=== PATIENT | female | born 1950 | race Caucasian/White ===

== ENCOUNTER 2018-01-07 12:52 | Observation (INO) | payer MEDICARE, MEDICAID ==
[2018-01-07 13:15] LABS: #Basophils 0.1 thou/uL (0.0-0.2); #Eosinphils 0.3 thou/uL (0.0-0.7); #Lymphocytes 3.3 thou/uL (1.20-3.40); #Monocytes 1.2 thou/uL (0.11-0.59); #Neutrophils 6.4 thou/uL (1.40-6.50); %Basophils 0.5 % (0.0-1.0); %Eosinophils 2.4 % (0.0-10.0); %Monocytes 10.7 % (0.0-10.0); %Neutrophils 57.4 % (42.0-75.0); Hemoglobin 13.3 g/dL (12.0-16.0); Mean Corpuscular HGB CONC 32.2 g/dL (32.0-36.0); Mean Corpuscular Hemoglobin 29.8 pg (27.0-31.0); Mean Corpuscular Volume 92.5 fl (81.0-99.0); Mean Platelet Volume 6.7 fL (7.4-10.4); Platelet Count 445 thou/uL (130-400); RBC Distribution Width 12.1 % (11.5-14.5); Red Blood Cell (RBC) Count 4.46 mill/uL (4.20-5.40); White Blood Cell (WBC) Count 11.2 thou/uL (4.8-10.8)
[2018-01-07] MEDS ORDERED: Nitroglycerin 0.4 MG TAB (25 Tab Bottle) ONE (13:36)
[2018-01-07] MEDS ORDERED: Nitroglycerin 2% Ointment 1 INCH/1 GM Packet ONE (13:36)
[2018-01-07 13:41] LABS: ALT (SGPT) 16 U/L (8-55); AST (SGOT) 18 U/L (5-34); Albumin 3.7 g/dL (3.4-4.8); Alkaline Phosphatase 109 U/L (40-150); Anion Gap 13 mmol/L (10-20); BUN (Urea Nitrogen) 17 mg/dL (9.8-20.1); Bilirubin, Total 0.4 mg/dL (0.2-1.2); Calc. Creatinine Clearance 0 mL/min (70-130); Calcium 9.4 mg/dL (7.8-10.44); Carbon Dioxide 26 mmol/L (23-31); Chloride 105 mmol/L (98-107); Estimated GFR-MDRD 79; Globulin 3.9 g/dL (2.4-3.5); Glucose 92 mg/dL (80-115); Potassium 3.9 mmol/L (3.5-5.1); Protein, Total 7.6 g/dL (6.0-8.3); Sodium 140 mmol/L (136-145)
[2018-01-07 13:45] LABS: CKMB 1.4 ng/mL (0-6.6); Troponin I 0.019 ng/mL (< 0.028)
[2018-01-07 13:49] LABS: CK (CPK) 69 U/L (29-168); Lipase 10 U/L (8-78)
--- NOTE | 2018-01-07 14:23 | RAD ---
PORTABLE CHEST: History: Chest pain, onset this morning. FINDINGS: Heart size is within normal limits. There are atherosclerotic changes of the aorta. Lungs are clear o f any infiltrates. There is some chronic left apical pleural changes noted. IMPRESSION: No active intrathoracic disease. POS: [facility]
[2018-01-07] MEDS ORDERED: Acetaminophen 650 MG Suppository PR PRN (15:41)
[2018-01-07] MEDS ORDERED: Acetaminophen 325 MG TAB PO PRN (15:41)
[2018-01-07] MEDS ORDERED: Nitroglycerin 0.4 MG TAB (25 Tab Bottle) PO PRN (15:41)
[2018-01-07] MEDS ORDERED: Bisacodyl 5 MG TAB PO PRN (15:41)
[2018-01-07] MEDS ORDERED: Morphine 5 MG/ML SYRINGE SLOW IVP PRN (16:12)
[2018-01-07 16:41] VITALS: BMI 19.9
--- NOTE | 2018-01-07 16:53 | HP ---
PRIMARY CARE PROVIDER: None. CHIEF COMPLAINT: Chest pain. HISTORY OF PRESENT ILLNESS: Ms. Rodriguez is a pleasant 67-year-old lady who was seen at [facility] on 01/07/2018. She reports that she has no known medical problems. She has no t seen a physician in several years. A couple of months ago, she had left-sided chest discomfort jody t resolved spontaneously. Today morning, she developed left-sided chest discomfort. She reports jody t it starts in the back and radiates to the front, sharp, feels like a pinched nerve, 7/[address], not accompanied by nausea, vomiting, lightheadedness, diaphoresis or shortness of breath. She de nies any recent long distance travel. She cannot recall any aggravating or relieving factors for the pain. REVIEW OF SYSTEMS: The following complete review of systems was negative, unless otherwise mentioned in the HPI or below: Constitutional: Weight loss or gain, ability to conduct usual activities. Sk in: Rash, itching. Eyes: Double vision, pain. ENT/Mouth: Nose bleeding, neck stiffness, pain, te nderness. Cardiovascular: Palpitations, dyspnea on exertion, orthopnea. Respiratory: Shortness of breath, wheezing, cough, hemoptysis, fever or night sweats. Gastrointestinal: Poor appetite, abdom inal pain, heartburn, nausea, vomiting, constipation, or diarrhea. Genitourinary: Urgency, frequenc y, dysuria, nocturia. Musculoskeletal: Pain, swelling. Neurologic/Psychiatric: Anxiety, depressio n. Allergy/Immunologic: Skin rash, bleeding tendency. PAST MEDICAL HISTORY: None. PAST SURGICAL HISTORY: None. SOCIAL HISTORY: The patient denies tobacco use, alcohol use or recreational drug use. FAMILY HISTORY: Significant for myocardial infarction in her mother when she was 60. ALLERGIES: No known drug allergies. CURRENT MEDICATIONS: None. CODE STATUS: I discussed her code status. She is FULL CODE. PHYSICAL EXAMINATION: GENERAL: Ms. Rodriguez is awake and alert, not in acute distress. VITAL SIGNS: Blood pressure is 131/72, pulse is 76, she is breathing at rate of 18 and saturating 98 % on room air. She is afebrile. When she initially presented to the emergency room, she had a blood pressure of 173/85. EYES: No scleral icterus. No conjunctival pallor. ENT: Moist mucosal membranes, no oropharyngeal erythema or exudates. NECK: Supple, nontender, normal range of movement. Trachea is midline. RESPIRATORY: Accessory muscles of breathing are not active. Chest wall movements are symmetric bila terally. LUNGS: Clear to auscultation without wheeze, rhonchi or crepitations. CARDIOVASCULAR: S1 and S2 are heard, regular. Peripheral pulses palpable. No carotid bruit, no per icardial rub. ABDOMEN: Soft, nontender, bowel sounds heard, no hepatomegaly, no splenomegaly. NEUROLOGIC: Cranial nerves II-XII are intact. Deep tendon reflexes 2+. MUSCULOSKELETAL: Power is 5/5 in all 4 extremities. Normal range of movement at all major extremity joints. SKIN: No rashes or subcutaneous nodules. LYMPHATIC: No cervical lymphadenopathy. PSYCHIATRIC: Normal mood, normal affect, the patient is oriented to person, place and time. LABORATORY DATA: Ms. Rodriguez's labs and investigations were reviewed. I reviewed her electrocardio gram, which shows normal sinus rhythm, no ST changes to suggest an acute coronary syndrome. I also r eviewed her chest x-ray, which shows no pulmonary infiltrates. Laboratory investigations show leukoc ytosis with 11,200 white cells, of which were 57% are neutrophils, normal hemoglobin, elevated platel et count of 445,000, normal D-dimer of 0.4, unremarkable liver profile, normal troponin I and normal lipase. ASSESSMENT AND PLAN: Ms. Rodriguez is a pleasant 67-year-old lady who was seen at [facility] on 01/07/2018. Her problem list includes: 1. Chest pain: She presents with chest pain that is atypical for acute coronary syndrome in the sen se it is starting at the back and radiating to the front. She will be admitted to the hospital and m onitored on telemetry. We will repeat troponin. We will check stress test to rule out cardiac etiol ogy. She has a normal D-dimer. 2. Leukocytosis: Mild, etiology unclear, we will recheck. 3. Thrombocythemia: She has mild thrombocythemia of unknown etiology. We will repeat her platelet count. She may need workup as outpatient if it is ongoing. 4. Deep venous thrombosis prophylaxis with Lovenox. Many thanks for allowing me to participate in your patient's care. Please feel free to contact me wi th any questions or concerns. LEVEL OF RISK: High. LEVEL OF COMPLEXITY: High.
[2018-01-07 17:35] LABS: Troponin I 0.019 ng/mL (< 0.028)
[2018-01-08 05:04] LABS: #Eosinphils 0.3 thou/uL (0.0-0.7); #Lymphocytes 1.8 thou/uL (1.20-3.40); #Monocytes 0.8 thou/uL (0.11-0.59); #Neutrophils 3.9 thou/uL (1.40-6.50); %Basophils 0.2 % (0.0-1.0); %Eosinophils 4.3 % (0.0-10.0); %Lymphocytes 26.4 % (21.0-51.0); %Monocytes 11.9 % (0.0-10.0); %Neutrophils 57.2 % (42.0-75.0); Hemoglobin 11.9 g/dL (12.0-16.0); Mean Corpuscular HGB CONC 32.1 g/dL (32.0-36.0); Mean Corpuscular Hemoglobin 29.8 pg (27.0-31.0); Mean Platelet Volume 6.9 fL (7.4-10.4); Platelet Count 382 thou/uL (130-400); RBC Distribution Width 12.3 % (11.5-14.5); White Blood Cell (WBC) Count 6.9 thou/uL (4.8-10.8)
[2018-01-08 05:19] LABS: Anion Gap 12 mmol/L (10-20); BUN (Urea Nitrogen) 21 mg/dL (9.8-20.1); Calc. Creatinine Clearance 84 mL/min (70-130); Calcium 8.7 mg/dL (7.8-10.44); Carbon Dioxide 27 mmol/L (23-31); Cardiac Risk 4.9 (Less than 4.5); Chloride 107 mmol/L (98-107); Cholesterol 197 mg/dl (< 200 Desired); Estimated GFR-MDRD Greater than 90; Glucose 92 mg/dL (80-115); HDL Cholesterol 40 mg/dL (>60 Neg Risk); LDL Cholesterol, Calculated 141 mg/dL; Potassium 3.8 mmol/L (3.5-5.1); Sodium 142 mmol/L (136-145); Triglycerides 82 mg/dL (Less than 150)
[2018-01-08] MEDS ORDERED: Aspirin 325 MG TAB PO SCH (09:00)
[2018-01-08] MEDS ORDERED: Enoxaparin Sodium 40 MG/0.4 ML SYRINGE SC SCH (09:00)
[2018-01-08] MEDS ORDERED: ADENOSINE 60 MG/20 ML VIAL ONE (12:59)
--- NOTE | 2018-01-08 13:35 | NM ---
MYOCARDIAL PERFUSION SCAN WITH SPECT IMAGING: History: Chest pain Examination is performed using 27.2 mCi Technetium 99M Sestamibi on the stress and 9.6 mCi Technetium 99M Sestamibi on the resting imaging. FINDINGS: There is a normal distribution of radiopharmaceutical without signs of ischemia or scar. Wall motion: There is symmetric contractility to the ventricle. Left ventricular ejection fraction: The calculated LVEF is 97%. Please correlate with echocardiogram. IMPRESSION: Unremarkable myocardial perfusion scan. POS: [facility]
[2018-01-08 15:36] VITALS: BP 128/58; TEMP 98.7
--- NOTE | 2018-01-08 23:17 | DIS ---
PRIMARY CARE PHYSICIAN: None. DATE OF ADMISSION: 01/07/2018 DATE OF DISCHARGE: 01/08/2018 DISCHARGE DIAGNOSES: 1. Chest pain. 2. Diarrhea. CONDITION OF PATIENT AT THE TIME OF DISCHARGE: Stable. I saw Ms. Rodriguez on the day of discharge. She denies any chest pain or shortness of breath. She denies any fevers or chills. No diarrhea. V ital signs are stable. S1 and S2 are heard, regular. Lungs are clear to auscultation bilaterally. HOSPITAL COURSE: Ms. Rodriguez is a pleasant 67-year-old lady, who was admitted to [facility] on 01/07/2018 for chest pain. She also reports that she has on and off diarrhea. Pulmonary embolism was ruled out with negative D-dimer. She also had nuclear stress test, which was normal. Her diarrhea resolved. Stool Clostridium difficile toxin test was negative. Stool culture result is pending. She is advised to follow up with her primary care provider and obtained the stool culture report. Many thanks for allowing me to participate in Ms. Rodriguez's case. DISCHARGE DESTINATION: Home.
== END 2018-01-08 16:10 | disposition home or self-care (01) ==
LOC: ERS 12:52 → 2SW 15:13
PROVIDERS: ADMIT Internal Medicine; ATTEND Internal Medicine
DX: R07.2 Precordial pain (principal); R19.7 Diarrhea, unspecified; D72.829 Elevated white blood cell count, unspecified; D47.3 Essential (hemorrhagic) thrombocythemia; Z82.49 Family history of ischemic heart disease and other diseases of the circulatory system
CPT/HCPCS: 71045; 78452; 80048; 80053; 80061; 82550; 82553; 83690; 84484 ×2; 85025 ×2; 85379; 87081; 87324; 87449; 93005; 93017; 94760; 99285; A9500; G0378; 36415; J0153

== ENCOUNTER 2020-08-19 03:44 | Inpatient (IN) | payer MEDICARE, MEDICAID, OTHER ==
[2020-08-19] MEDS ORDERED: Aspirin Chewable 81 MG TAB ONE (04:04)
[2020-08-19 04:31] LABS: Hemoglobin 7.7 g/dL (12.0-16.0); Mean Corpuscular HGB CONC 28.8 g/dL (32.0-36.0); Mean Corpuscular Hemoglobin 22.6 pg (27.0-31.0); Mean Corpuscular Volume 78.5 fL (78.0-98.0); Mean Platelet Volume 6.5 fL (7.4-10.4); Platelet Count 680 thou/uL (130-400); RBC Distribution Width 17.6 % (11.5-14.5); White Blood Cell (WBC) Count 10.3 thou/uL (4.8-10.8)
[2020-08-19 04:44] LABS: ALT (SGPT) 12 U/L (8-55); AST (SGOT) 15 U/L (5-34); Albumin 2.6 g/dL (3.4-4.8); Alkaline Phosphatase 89 U/L (40-110); Anion Gap 12 mmol/L (10-20); BUN (Urea Nitrogen) 17 mg/dL (9.8-20.1); Bilirubin, Total 0.2 mg/dL (0.2-1.2); CK (CPK) 60 U/L (29-168); Calc. Creatinine Clearance 0 mL/min (70-130); Carbon Dioxide 24 mmol/L (23-31); Chloride 106 mmol/L (98-107); Estimated GFR-MDRD Greater than 90; Globulin 3.9 g/dL (2.4-3.5); Glucose 96 mg/dL (80-115); Potassium 3.6 mmol/L (3.5-5.1); Protein, Total 6.5 g/dL (6.0-8.3); Sodium 138 mmol/L (136-145)
[2020-08-19 05:00] LABS: #Basophils 0.1 thou/uL (0.0-0.2); #Eosinphils 0.2 thou/uL (0.0-0.7); #Lymphocytes 2.2 thou/uL (1.20-3.40); #Monocytes 1.3 thou/uL (0.11-0.59); #Neutrophils 6.7 thou/uL (1.40-6.50); %Basophils 0.6 % (0.0-1.0); %Eosinophils 1.9 % (0.0-10.0); %Lymphocytes 20.9 % (21.0-51.0); %Monocytes 12.1 % (0.0-10.0); %Neutrophils 64.6 % (42.0-75.0); Anisocytosis SLIGHT = 6-15 cells (100X) (0-5/hpf); Hypochromia SLIGHT = 6-15 cells (100X) (0-5/hpf); MDiff Complete? YES
[2020-08-19] MEDS ORDERED: Ondansetron PF 4 MG/2 ML Vial IVP PRN (08:11)
[2020-08-19] MEDS ORDERED: Acetaminophen 325 MG TAB PO PRN (08:11)
[2020-08-19] MEDS ORDERED: Iopamidol 370 76% 100 ML VIAL ONE (10:16)
--- NOTE | 2020-08-19 14:05 | CT ---
Emergent after hours noncontrast CT abdomen and pelvis HISTORY: CTA chest was performed which indicated thickening of the gastric wall, and CT abdomen was recommende d. Patient presents with chest pain and shortness of breath. COMPARISON: 04/15/2007. IMPRESSION: 1. Irregular and prominent lobulated thickening involving the gastric wall with adjacent mild inflamm atory stranding as well as adjacent enlarged lymph nodes. Findings are worrisome for gastric neoplasm. Further evaluation with endoscopy is recommended. 2. Contrast in the renal collecting systems and urinary bladder related to previous contrasted CT ang iogram of the chest. There is no hydronephrosis. 3. Degenerative changes in the spine with right convex scoliosis lumbar spine. No suspicious lytic or sclerotic osseous lesions are seen. 4. Findings are in agreement with preliminary report by direct radiology. Code QA
--- NOTE | 2020-08-19 14:33 | RAD ---
PRELIMINARY REPORT/DIRECT RADIOLOGY/EMERGENCY AFTER HOURS PROCEDURE: EXAM: XR Chest, 1 View. CLINICAL HISTORY: CHEST PAIN THAT STARTED THIS EVENING. SOB COMPARISON: 01/07/18 FINDINGS: LUNGS AND PLEURA: Biapical scarring suspected. The lungs are clear. No pleural effusion or pneumothor ax. HEART AND MEDIASTINUM: The heart size and mediastinal contours are normal. Calcified aortic plaque no asia. BONES: No acute osseous abnormality. IMPRESSION: No acute cardiopulmonary pathology. ELECTRONICALLY SIGNED BY: Kadi Madsen MD Aug 19, 2020 5:46:58 AM CDT FINAL REPORT EXAM: CHEST ONE VIEW: 08/19/20 HISTORY: Emergency afterhours exam, 4:25 a.m., 08/19/20. This is a final report. Biapical pleural and parenchymal density most likely scarring showing little change from prior study. No significant new process. This report agrees with the preliminary report. POS: OFF
[2020-08-19 14:51] LABS: SARS-CoV-2 MS2 Positive; SARS-CoV-2 N Gene Negative; SARS-CoV-2 S Gene Negative; SARS-CoV-2 by NAA Not Detected (NotDetected); SARS-CoV-2 orf1ab Negative
--- NOTE | 2020-08-19 15:59 | PDOC.HHP ---
Hospitalist HPI - History of Present Illness Shortness of breath History of Present Illness: The patient is a 70-year-old female with no significant past medical history who presented to the hospital with complaints of sudden onset of shortness of breath that woke her up from sleep. Her symptoms were completely resolved by the time she arrived to the ER. Imaging studies in the ER revealed thickening in the wall of the stomach with regional lymphadenopathy. She was also found to be anemic with hemoglobin level of 7.7. Given this combination of findings, and admission was requested to evaluate for possible gastric malignancy. Hospitalist History - Past Medical History Other Medical History: No significant history. - Past Surgical History Past Surgical History: reports: no pertinent history - Family History Family History: reports: no pertinent history - Social History Alcohol: reports: None Drugs: reports: none - Exam General Appearance: awake alert ENT: normocephalic atraumatic Neck: supple, no JVD Respiratory: no tachypnea Gastrointestinal: soft Neurological: cranial nerve grossly intact, no focal deficits Hospitalist Results - Labs Result Diagrams: 08/19/20 04:05 08/19/20 04:05 Lab results: WBC 10.3 thou/uL (4.8-10.8) 08/19/20 04:05 Hgb 7.7 g/dL (12.0-16.0) L 08/19/20 04:05 Hct 26.7 % (36.0-47.0) L 08/19/20 04:05 MCV 78.5 fL (78.0-98.0) 08/19/20 04:05 Plt Count 680 thou/uL (130-400) H 08/19/20 04:05 Neutrophils % 64.6 % (42.0-75.0) 08/19/20 04:05 Sodium 138 mmol/L (136-145) 08/19/20 04:05 Potassium 3.6 mmol/L (3.5-5.1) 08/19/20 04:05 Chloride 106 mmol/L (98-107) 08/19/20 04:05 Carbon Dioxide 24 mmol/L (23-31) 08/19/20 04:05 BUN 17 mg/dL (9.8-20.1) 08/19/20 04:05 Creatinine 0.61 mg/dL (0.6-1.1) 08/19/20 04:05 Glucose 96 mg/dL (80-115) 08/19/20 04:05 Calcium 8.0 mg/dL (7.8-10.44) 08/19/20 04:05 Total Bilirubin 0.2 mg/dL (0.2-1.2) 08/19/20 04:05 AST 15 U/L (5-34) 08/19/20 04:05 ALT 12 U/L (8-55) 08/19/20 04:05 Alkaline Phosphatase 89 U/L (40-110) 08/19/20 04:05 Creatine Kinase 60 U/L (29-168) 08/19/20 04:05 Troponin I Less than 0.010 ng/mL (< 0.028) 08/19/20 04:05 Serum Total Protein 6.5 g/dL (6.0-8.3) 08/19/20 04:05 Albumin 2.6 g/dL (3.4-4.8) L 08/19/20 04:05 Hospitalist H&P A/P - Problem (1) Anemia due to blood loss Code(s): D50.0 - IRON DEFICIENCY ANEMIA SECONDARY TO BLOOD LOSS (CHRONIC) Status: Acute (2) Gastric mass Code(s): K31.89 - OTHER DISEASES OF STOMACH AND DUODENUM Status: Acute - Plan Plan: Transfuse 1 unit of packed RBCs. Consult GI as the patient might require endoscopy to evaluate the abnormal CT findings in her stomach. SCDs for DVT prophylaxis.
--- NOTE | 2020-08-19 22:22 | CON ---
DATE OF CONSULTATION: 08/19/2020 REASON FOR CONSULTATION: 1. Abnormal CAT scan of abdomen showing thickening of the gastric wall. 2. Anemia, recent weight loss. HISTORY OF PRESENT ILLNESS: Ms. Corrina Rodriguez is a very pleasant 70-year-old fragile looking Latin-[place]ic female hospitalized, because of some dyspnea and anxiety attack. Apparently, she woke up from sleep yesterday at 2:30 in the morning and she felt uncomfortable and she almost had a panic attack anxiety attack. She did not have any chest pain. Denies having difficulty breathing. The patient was seen in the room along with patient's daughter. The patient insisted that she had no abdominal pain, no chest pain, no difficulty breathing, but she felt uncomfortable and she almost felt like she had an anxiety attack. The patient came to the ER and was sent for a CAT scan of abdomen and chest, etc. The chest CAT scan was negative for any pulmonary embolism. She was found to have some thickening of the gastric wall, enlarged lymph nodes. The radiologist says this was very suggestive of possibly malignancy. Interestingly, the patient had no specific GI symptoms. She has good appetite. She eats very well. She has no nausea, vomiting. No dysphagia. Her bowel movements are regular. No hematochezia. No melena. The patient had a tooth extraction done couple of weeks ago and she was not eating very well. Her weight is 120 pounds, but today her weight is down to 105. At the present time, she appears very comfortable. She denies any symptoms like chest pain, difficulty breathing, palpitation. She works in a farm, and she is pretty active and she does not feel any tiredness or fatigue or lack of energy. She had no family history of cancer except her son who is 50 years old, had colon cancer and who had surgery 3 years ago. Apparently, her of pulmonary embolism in May of 2020 and she is somewhat mentally down for several weeks. She had no relevant history. ALLERGIES: NONE. SOCIAL HISTORY: The patient is recently. She does not smoke or drink alcohol. MEDICAL ILLNESSES: None. PAST SURGICAL HISTORY: None. FAMILY HISTORY: No family history of any colon cancer in the parents. However, son had colon cancer 3 years ago, now he is cancer-free. REVIEW OF SYSTEMS: A 10-point system reviewed. CONSTITUTIONAL: No history of any fever or chills. She has good exercise tolerance, but history of weight loss of 15 pounds over the last probably few weeks. HEAD: No chronic headache, no dizziness. EYES: No diplopia, no impaired vision. NOSE: No nosebleed. THROAT: No sore throat or dysphagia. NECK: No stiffness or pain. LUNGS: No chronic coughing, hemoptysis, dyspnea. CARDIOVASCULAR: No chest pain. No palpitation. No dyspnea, orthopnea, PND. GI: No abdominal pain, nausea, vomiting. No hematochezia. No melena. : No dysuria, hematuria. MUSCULOSKELETAL: Not known. NEUROLOGIC: Not known. ENDOCRINE: Not known. HEMATOLOGIC: Not known. PHYSICAL EXAMINATION: GENERAL: She is very thin built, appears very comfortable. She is a good historian. She is not short winded. VITAL SIGNS: Her pulse is 82, blood pressure is 116/56. Afebrile. HEENT: Conjunctivae are clear. NECK: Supple. No adenitis or thyromegaly noted. CARDIOVASCULAR: Normal heart sounds. LUNGS: Clear to auscultation. ABDOMEN: Soft. Abdomen is nontender. No organomegaly. No masses. EXTREMITIES: Reveal no edema. CENTRAL NERVOUS SYSTEM: Grossly within normal limits. ADMITTING LABS: CBC: WBC 02182, hemoglobin 7.7, hematocrit is 26.7, platelet count is 680,000, MCV 78.5, polymorphs 64, lymphocytes 20, monocytes 12. Serum chemistries normal lytes. Albumin 2.6, total protein 6.5. Liver function tests are normal with 0.2 bilirubin, AST 15, ALT 12, alkaline phosphatase 89. IMAGING: An abdominal CAT scan done showed thickening of the gastric wall and enlarged lymph nodes. As per radiologist, somewhat worrisome for possible malignancy. CLINICAL IMPRESSION: A 70-year-old female, came with some what appeared to be anxiety, panic attack. She insists that she did not have any chest pain or difficulty breathing. Her abdomen CAT scan shows some abnormal findings. She has history of weight loss. She is also anemic. PLAN: EGD and biopsy. I did talk to Ms. Rodriguez and also her daughter. I explained about the endoscopic studies and procedure in detail. She is agreeable. I will plan for EGD tomorrow. Job ID: [id number]
[2020-08-20 04:37] LABS: #Eosinphils 0.2 thou/uL (0.0-0.7); #Monocytes 1.2 thou/uL (0.11-0.59); #Neutrophils 7.6 thou/uL (1.40-6.50); %Basophils 0.3 % (0.0-1.0); %Eosinophils 1.8 % (0.0-10.0); %Lymphocytes 17.8 % (21.0-51.0); %Monocytes 11.2 % (0.0-10.0); %Neutrophils 68.9 % (42.0-75.0); Hemoglobin 8.8 g/dL (12.0-16.0); Mean Corpuscular HGB CONC 29.2 g/dL (32.0-36.0); Mean Corpuscular Hemoglobin 23.2 pg (27.0-31.0); Mean Corpuscular Volume 79.2 fL (78.0-98.0); Mean Platelet Volume 6.8 fL (7.4-10.4); Platelet Count 623 thou/uL (130-400); RBC Distribution Width 17.3 % (11.5-14.5); Red Blood Cell (RBC) Count 3.79 mill/uL (4.20-5.40); White Blood Cell (WBC) Count 11.1 thou/uL (4.8-10.8)
[2020-08-20 04:54] LABS: Anion Gap 11 mmol/L (10-20); BUN (Urea Nitrogen) 12 mg/dL (9.8-20.1); Calc. Creatinine Clearance 60 mL/min (70-130); Calcium 7.8 mg/dL (7.8-10.44); Carbon Dioxide 26 mmol/L (23-31); Chloride 105 mmol/L (98-107); Estimated GFR-MDRD 89; Glucose 82 mg/dL (80-115); Potassium 3.8 mmol/L (3.5-5.1); Sodium 138 mmol/L (136-145)
[2020-08-20] MEDS ORDERED: PROPOFOL 200 MG/20 ML VIAL ONE (10:33)
--- NOTE | 2020-08-20 11:02 | CT ---
PRELIMINARY REPORT/DIRECT RADIOLOGY/EMERGENCY AFTER HOURS PROCEDURE: Receipt of this report by the clinical staff was confirmed with Chloe Lamas MD by Kayla De La Vega on Aug 19, 2020 05:53:00 CDT. Addendum electronically signed by Ashley De La Vega on August 19, 2020 5:53:52 AM CDT EXAM: CTA Chest with Intravenous Contrast CLINICAL HISTORY: CHEST PAIN THAT STARTED THIS EVENING. SOB TECHNIQUE: Axial CTA images of the chest with intravenous contrast. Three-dimensional MIP/volume rend ered reformations were performed. CONTRAST: With; ISOVUE 370, 60ML COMPARISON: Radiographs 01/07/18 and same day FINDINGS: PULMONARY ARTERIES There is no intraluminal filling defect suspicious for PE. AORTA No thoracic aortic aneurysm or dissection. LUNGS Subpleural consolidation in the lung apices. Calcified granuloma left lower lobe. PLEURAL SPACES No pleural effusion. No pneumothorax. HEART AND MEDIASTINUM No cardiomegaly. No significant pericardial effusion. LYMPH NODES There is some upper abdominal adenopathy. No mediastinal or hilar adenopathy. BONES No focal osseous abnormality or acute fracture. CHEST WALL AND UPPER ABDOMEN Markedly abnormal appearance of the gastric wall with exuberant thicken ing. There is moderate adenopathy in the epigastric region.. The chest wall is unremarkable. Calcif ications versus biopsy clip in the right breast. IMPRESSION: Markedly abnormal thickening of the gastric wall. Recommend correlation with any known h istory of malignancy; differential considerations given the extent of involvement include lymphoma, g astric adenocarcinoma. Recommend dedicated abdominal imaging, GI consultation/endoscopy. No PE, no a ortic aneurysm, no aortic dissection. Coronary vascular calcifications and atherosclerotic changes n oted. Extensive subpleural consolidative scarring in the lung apices, based on prior radiograph, I favor th is is chronic, however pulmonology consultation is recommended to ascertain the etiology, established follow-up/surveillance. Please note this modality is not intended for characterization of the breas t parenchyma, annual mammography recommended. ELECTRONICALLY SIGNED BY: Kadi Madsen MD Aug 19, 2020 5:51:36 AM CDT FINAL REPORT CT ANGIOGRAM CHEST WITH 3D RENDERIN08/19/20 Emergency afterhours exam, 5:01 a.m., 08/19/20. This is a final report. No convincing evidence for acute pulmonary embolism. Very irregular abnormal gastric mass with eccent renato severe wall thickening. Subpleural scarring in the apices. This report is in agreement with the preliminary report. POS: OFF
--- NOTE | 2020-08-20 14:07 | PDOC.HOSPP ---
- Subjective Encounter Date: 08/20/20 - Objective Vital Signs & Weight: Vital Signs (12 hours) Temp Pulse Resp BP Pulse Ox 08/20/20 10:42 97.8 F 73 16 117/56 L 98 08/20/20 07:30 97.8 F 77 16 112/58 L 99 08/20/20 04:00 98.8 F 79 20 106/59 L 100 Weight Weight 105 lb 6.4 oz I&O: 08/19/20 08/20/20 08/21/20 06:59 06:59 06:59 Intake Total 630 Output Total 200 Balance 430 Result Diagrams: 08/20/20 03:55 08/20/20 03:55 - Exam General Appearance: awake alert Neck: supple, no JVD Respiratory: normal chest expansion, no tachypnea Neurological: cranial nerve grossly intact, no focal deficits Hosp A/P (1) Anemia due to blood loss Code(s): D50.0 - IRON DEFICIENCY ANEMIA SECONDARY TO BLOOD LOSS (CHRONIC) Status: Acute (2) Gastric mass Code(s): K31.89 - OTHER DISEASES OF STOMACH AND DUODENUM Status: Acute - Plan CT scan showed thickening in the gastric wall with regional lymphadenopathy suggestive of an malignant process. Plan for EGD today to assess the findings noted on the CT scan.
[2020-08-21 04:20] LABS: #Eosinphils 0.2 thou/uL (0.0-0.7); #Lymphocytes 2.5 thou/uL (1.20-3.40); #Monocytes 1.1 thou/uL (0.11-0.59); #Neutrophils 6.8 thou/uL (1.40-6.50); %Basophils 0.5 % (0.0-1.0); %Eosinophils 1.5 % (0.0-10.0); %Lymphocytes 23.8 % (21.0-51.0); %Monocytes 10.4 % (0.0-10.0); %Neutrophils 63.8 % (42.0-75.0); Mean Corpuscular HGB CONC 30.2 g/dL (32.0-36.0); Mean Corpuscular Hemoglobin 23.9 pg (27.0-31.0); Mean Corpuscular Volume 79.2 fL (78.0-98.0); Mean Platelet Volume 6.8 fL (7.4-10.4); Platelet Count 659 thou/uL (130-400); RBC Distribution Width 17.3 % (11.5-14.5); Red Blood Cell (RBC) Count 3.76 mill/uL (4.20-5.40); White Blood Cell (WBC) Count 10.6 thou/uL (4.8-10.8)
[2020-08-21 04:41] LABS: Anion Gap 11 mmol/L (10-20); BUN (Urea Nitrogen) 10 mg/dL (9.8-20.1); Calc. Creatinine Clearance 70 mL/min (70-130); Calcium 7.8 mg/dL (7.8-10.44); Carbon Dioxide 24 mmol/L (23-31); Chloride 107 mmol/L (98-107); Estimated GFR-MDRD Greater than 90; Glucose 79 mg/dL (80-115); Potassium 3.7 mmol/L (3.5-5.1); Sodium 138 mmol/L (136-145)
--- NOTE | 2020-08-21 07:36 | OP ---
DATE OF PROCEDURE: 08/20/2020 PROCEDURE PERFORMED: Esophagogastroduodenoscopy with biopsy. PREOPERATIVE DIAGNOSIS: Abdominal CAT scan showing gastric mass, anemia. She also has history of weight loss. POSTOPERATIVE DIAGNOSES: 1. Normal esophagus and duodenum. 2. Large fungating friable polypoid lesion in the stomach which most of the gastric body. One area appears to be eroding into the gastric wall. Biopsies were obtained in the area. DESCRIPTION OF PROCEDURE: The patient was placed on her left lateral position and was given sedation by Anesthesia Department. A Pentax videogastroscope under direct vision passed down the oropharynx, past the GE junction into the stomach. The esophageal mucosa appeared normal. In the GE junction, no pathology. As soon as the stomach was entered, there was a large fungating friable mass occupying the gastric body greater curvature. The lumen is very large most of the gastric body. Retroflexion shows no lesions in the fundus or cardia. In the gastric antrum, no pathology. Biopsies area. In the duodenum, no pathology. IMPRESSION: Gastric cancer, most likely, with possibility of gastric lymphoma. RECOMMENDATIONS: 1. Diet as tolerated. 2. Oncology input. 3. Await gastric biopsies. Job ID: [id number]
[2020-08-21 14:29] VITALS: BMI 16.5
[2020-08-21 16:03] VITALS: BP 117/61; TEMP 98.7
--- NOTE | 2020-08-22 00:55 | DIS ---
DATE OF ADMISSION: 08/19/2020 DATE OF DISCHARGE: 08/21/2020 DISCHARGE DIAGNOSES: 1. Gastric mass, possibly adenocarcinoma or lymphoma. 2. Anemia due to blood loss. DISCHARGE MEDICATIONS: Ferrous sulfate 325 mg orally daily. DISPOSITION: The patient will be discharged home on expected followup with Oncology within 1 week. HISTORY OF PRESENT ILLNESS AND HOSPITAL COURSE: The patient is a 70-year-old female with no significant past medical history, who presented to the hospital with complaints of shortness of breath and feeling tired. The patient was found to be anemic in the emergency department with hemoglobin level of 7.7. CT scan of the chest was obtained in the emergency department to rule out pulmonary embolism. Pulmonary embolus was ruled out, but gastric thickening was noted in addition to lymphadenopathy. The patient underwent an EGD, which showed presence of gastric mass, most likely represents a gastric lymphoma. Biopsies were obtained. I have discussed the case with Dr. Knight, who agreed to follow the patient in the office for further evaluation and management. The patient received 1 unit of packed RBCs, which led to improvement in her hemoglobin level to the level of 9 at the time of discharge. Job ID: [id number]
--- NOTE | 2020-08-23 12:06 | PQF ---
CLINICAL DOCUMENTATION CLARIFICATION FORM: Dear : Moises Antoine MD Date / Time: 08/23/2020 Please exercise your independent, professional judgment in responding to the clarification form. Clinical indicators are provided on the bottom of this form for your review Please check appropriate box(es): [ >] Protein Calorie Malnutrition: [ ] Mild [ >] Moderate [ ] Severe [ ] Other Malnutrition (please specify) [ ] Underweight without malnutrition [ ] Cachexia [ ] Other diagnosis (Please specify if any) [ ] Unable to determine In addition, please specify: Present on Admission (POA): [ > ] Yes [ ] No [ ] Unable to determine Physician Signature: Date/Time: For continuity of documentation, please document condition throughout progress notes and discharge summary. Thank You. To be completed by CDI/Coding staff for physician review: Present Clinical Indicators - Signs / Symptoms / Labs Results and Location in Medical Record [ ] Malnutrition, Failure to Thrive, Cachexia [ x ] BMI of -16.5 Anesthesia pre op record on 08/20 Two or More of the Following ASPEN Criteria: [ ] Unintentional Insufficient Energy Intake [ x] Weight Loss Consult on 08/19 [ x ] Albumin-2.6 L H&P on 08/19 [ x ] Iron deficiency anemia H&P on 08/19 [ x] Adenocarcinoma of stomach Path report on 08/21 [ ] Diminished Handgrip Strength Present Risk Factors Results and Location in Medical Record [ x ] Change in appetite / nausea / vomiting / diarrhea ED proivder report on 08/19 [ ] Inability to consume adequate caloric intake [ x ] Adenocarcinoma of stomach Path report on 08/21 [ ] Medication [ ] PEG tube [ ] Short gut syndrome Present Treatments Results and Location in Medical Record [ x ] Patient received 1 unit of packed RBCs Discharge summary on 08/22 [ x ] Discharge medications: ferrous sulphate 325mg orally daily Discharge summary on 08/22 [ ] TPN / tube feedings [ ] Assistance with feeding [ ] Appetite stimulant - medication CDS/B[facility]ler Signature: AAS Phone #: Date/Time: 08/23/2020 Moderate Malnutrition (in acute illness) ? Energy Intake: <75% of estimated energy requirement for > 7 days ? Weight Loss: 1-2%/1 week; 5%/ 1 month; 7.5%/3 months ? Other: mild body fat loss; mild muscle mass loss; mild fluid accumulation; Severe Malnutrition (in acute illness) ? Energy Intake: ? 50% of estimated energy requirement for ? 5 days ? Weight Loss: >2%/1 week; >5%/1 month; >7.5%/3 months ? 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 Energy Intake: <75% of estimated energy requirement for ?1 month ? Weight Loss: 5%/1 month; 7.5%/3 months; 10%/6 months; 20%/1 year ? Other: mild body fat loss; mild muscle mass loss; mild fluid accumulation Severe Malnutrition (in chronic illness) ? Energy Intake: ?75% of estimated energy requirement for ?1 month ? Weight Loss: >5%/1 month; >7.5%/3 months; >10%/6 months; >20%/1 year ? 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
--- NOTE | 2020-08-23 12:19 | PQF ---
CLINICAL DOCUMENTATION CLARIFICATION FORM: Dear : Moises Antoine MD Date / Time: 08/23/2020 Please exercise your independent, professional judgment in responding to the clarification form. Clinical indicators are provided on the bottom of this form for your review Please check appropriate box(es): [ >] Acute blood loss anemia [ ] Post-op anemia related to acute blood loss [ ] Anemia: [ ] Aplastic [ ] Nutritional [ ] Drug induced (specify) [ ] Hemolytic [ ] Hereditary [ ] Acquired [ ] Autoimmune [ ] Non-autoimmune [ ] Enzyme disorder [ ] Chronic Anemia: [ ] Blood loss [ ] Hemolytic [ ] Simple [ ] Due to Vitamin B12 Deficiency [ ] Other [ ] Anemia of Chronic Disease (please specify) [ ] Anemia due to Neoplasm: [ ] Primary [ ] Secondary [ ] Anemia due to (please choose): [ ] Due to Chemotherapy [ ] Due to Radiotherapy [ ] Due to Immunotherapy [ ] Other diagnosis (Please specify if any) [ ] Unable to determine In addition, please specify: Present on Admission (POA): [ > ] Yes [ ] No [ ] Unable to determine Physician Signature: Date/Time: For continuity of documentation, please document condition throughout progress notes and discharge summary. Thank You. To be completed by CDI/Coding staff for physician review: Present Clinical Indicators - Signs / Symptoms / Labs Results and Location in Medical Record [ X ] Anemia due to blood loss H&P on 08/19 [x ] Iron deficiency anemia secondary to blood loss H&P on 08/19 [ x] Hgb 7.7, Hct 26.7 laboratory on 08/19 [ x ] Adenocarcinoma of stomach path on 08/21 [ ] Melena/Hematochezia [ ] Tachycardia Present Risk Factors Results and Location in Medical Record [ ] Surgery [ ] Fracture of long bones [ x ] Adenocarcinoma of stomach path on 08/21 [ ] Malnutrition Present Treatments Results and Location in Medical Record [ x ] The patient received 1unit of packed RBCs Discharge summary on 09/22 [x ] Discharge medications: ferrous sulphate 325mg orally daily Discharge summary on 08/22 CDS/Box Loader Signature: AAS Phone #: Date/Time: 08/23/2020 This is a permanent part of the Medical Record [facility]
== END 2020-08-21 17:54 | disposition home or self-care (01) | DRG 375 ==
LOC: ERS 03:44 → 2NO 07:23
PROVIDERS: ADMIT Internal Medicine; ATTEND Internal Medicine
PROC: 30233N1 Transfusion of Nonautologous Red Blood Cells into Peripheral Vein, Percutaneous Approach (ICD-10-PCS; 2020-08-19)
PROC: 0DB68ZX Excision of Stomach, Via Natural or Artificial Opening Endoscopic, Diagnostic (ICD-10-PCS; principal; 2020-08-20)
DX: C16.9 Malignant neoplasm of stomach, unspecified (principal); D62 Acute posthemorrhagic anemia; E44.0 Moderate protein-calorie malnutrition; Z68.1 Body mass index [BMI] 19.9 or less, adult; D50.0 Iron deficiency anemia secondary to blood loss (chronic); F41.0 Panic disorder [episodic paroxysmal anxiety]
CPT/HCPCS: 36415; 36430; 71045; 71275; 74176; 80048; 80053; 82550; 84484; 85025; 85379; 86850; 86900; 86901; 87635; 88305; 93005; J2704; P9016; Q9967; U0003

== ENCOUNTER 2020-10-03 12:33 | Emergency (ER) | payer MEDICARE, MEDICAID ==
[~2020-10-03 12:33] MED LIST: Iopamidol-370 76% 500 ML 1 ML ONE
[2020-10-03 13:28] LABS: Hemoglobin 9.3 g/dL (12.0-16.0); Mean Corpuscular Hemoglobin 27.6 pg (27.0-31.0); Mean Corpuscular Volume 89.1 fL (78.0-98.0); Mean Platelet Volume 7.4 fL (7.4-10.4); Platelet Count 428 thou/uL (130-400); RBC Distribution Width 22.5 % (11.5-14.5); Red Blood Cell (RBC) Count 3.37 mill/uL (4.20-5.40); White Blood Cell (WBC) Count 17.1 thou/uL (4.8-10.8)
[2020-10-03 13:31] LABS: INR-International Normal Ratio 1.1; PTT 30.5 sec (22.9-36.1); Prothrombin Time 14.1 sec (12.0-14.7)
--- NOTE | 2020-10-03 13:39 | RAD ---
PORTABLE CHEST: Date: 10/03/2020 PROVIDED CLINICAL HISTORY: Shortness of breath. FINDINGS: Comparison with 08/19/2020. Cardiac and mediastinal silhouette is unchanged in appearance. Interval placement of right IJ implant ed port, tip of which projects in the expected location of SVC. Bilateral pleural fluid with adjacent subsegmental atelectasis or infiltrate, greater on the left. No evidence for pneumothorax. IMPRESSION: Development of left greater than right pleural fluid and adjacent atelectasis or infiltrate. POS: AH
[2020-10-03 13:43] LABS: Anisocytosis MODERATE=16-30 cells (100X) (0-5/hpf); Band 13 % (5-11); Hypochromia SLIGHT = 6-15 cells (100X) (0-5/hpf); Lymphocytes 12 % (21-51); MDiff Complete? YES; Metamyelocyte 3 % (0-0); Monocytes 4 % (0-10); Myelocyte 2 % (0-0); Neutrophil 66 % (42-75); Platelet Morphology Comment Appears Increased; Polychromasia SLIGHT = 2-3 cells (100X) (0-2/hpf); Target Cells SLIGHT = 2-5 cells (100X) (0-1/hpf)
[2020-10-03 13:46] LABS: ALT (SGPT) 17 U/L (8-55); AST (SGOT) 25 U/L (5-34); Albumin 1.9 g/dL (3.4-4.8); Alkaline Phosphatase 175 U/L (40-110); Anion Gap 14 mmol/L (10-20); BUN (Urea Nitrogen) 11 mg/dL (9.8-20.1); Bilirubin, Total 0.2 mg/dL (0.2-1.2); Calc. Creatinine Clearance 0 mL/min (70-130); Calcium 8.2 mg/dL (7.8-10.44); Carbon Dioxide 26 mmol/L (23-31); Chloride 100 mmol/L (98-107); Estimated GFR-MDRD Greater than 90; Globulin 4.6 g/dL (2.4-3.5); Glucose 106 mg/dL (80-115); Potassium 3.5 mmol/L (3.5-5.1); Protein, Total 6.5 g/dL (6.0-8.3); Sodium 136 mmol/L (136-145)
--- NOTE | 2020-10-03 14:38 | CT ---
CT PULMONARY ANGIOGRAM WITH IV CONTRAST AND 3D POSTPROCESSING: Date: 10/03/2020 HISTORY: Dyspnea. Malignant neoplasm of body of stomach. FINDINGS: Comparison made with the CT pulmonary angiogram of 08/19/2020. There is good contrast opacification of the pulmonary arterial vasculature without filling defects to suggest pulmonary embolism. There are vascular calcifications without aneurysm or dissection of the thoracic aorta. No pericardial effusions are seen. There are moderate size bilateral pleural effusions with adjacent atelectatic changes. Chronic changes in the lung apices are again noted. Upper abdominal tomograms demonstrate mass-like wall thickening of the stomach. There is an approxima tely 2.0 cm low density lesion in the left lobe of the liver suspicious for metastasis. This was not seen on the previous study. IMPRESSION: 1. No CT evidence of pulmonary embolism. 2. Bilateral pleural effusions. 3. New left liver lobe mass suspicious for metastatic disease. POS: OFF
--- NOTE | 2020-10-07 15:32 | EKG ---
Test Reason : SOB Blood Pressure : / mmHG Vent. Rate : 106 BPM Atrial Rate : 106 BPM P-R Int : 138 ms QRS Dur : 072 ms QT Int : 348 ms P-R-T Axes : 073 067 050 degrees QTc Int : 462 ms Sinus tachycardia Otherwise normal ECG Confirmed by TALA HINOJOSA ([id number]), general expeditor CUCA COYLE ([id number]) on 10/07/2020 3:31:38 PM Referred By: Confirmed By:TALA Woo
== END 2020-10-03 17:17 | disposition home or self-care (01) ==
LOC: ERS 12:33
DX: J90 Pleural effusion, not elsewhere classified (principal); Z79.891 Long term (current) use of opiate analgesic; Z79.899 Other long term (current) drug therapy
CPT/HCPCS: 71045; 71275; 80053; 83880; 84484; 85025; 85610; 85730; 93005; Q9967

== ENCOUNTER 2020-10-20 09:51 | Outpatient (CLI) | payer MEDICARE, MEDICAID ==
--- NOTE | 2020-10-20 10:16 | RAD ---
EXAM: Chest PA and lateral: HISTORY: Dyspnea COMPARISON: 10/03/2020 FINDINGS: Heart size:Within normal limits. Lungs:Clear of acute process. Small left pleural effusion with slight right costophrenic angle blunting Stable biapical pleural thickening. IMPRESSION: Small left pleural effusion and minimal right costophrenic angle blunting.
== END 2020-10-20 09:52 | disposition home or self-care (01) ==
LOC: BICRAD 09:51
PROVIDERS: ATTEND Internal Medicine Pulmonary Disease
DX: R06.00 Dyspnea, unspecified (principal); J90 Pleural effusion, not elsewhere classified; J94.8 Other specified pleural conditions
CPT/HCPCS: 71046

== ENCOUNTER 2021-03-15 11:00 | Outpatient (CLI) | payer MEDICARE, MEDICAID | END 2021-03-15 11:01 | disposition home or self-care (01) | LOC: BICRAD 11:00 | PROVIDERS: ATTEND Family Medicine | DX: R06.02 Shortness of breath (principal); J90 Pleural effusion, not elsewhere classified | CPT/HCPCS: 71046 ==

== ENCOUNTER 2021-03-22 15:38 | Outpatient (CLI) | payer MEDICARE, MEDICAID ==
[2021-03-23 11:37] LABS: SARS-CoV-2 PCR by NAA Not Detected (NotDetected)
== END 2021-03-22 15:39 | disposition home or self-care (01) ==
LOC: LABBT 15:38
PROVIDERS: ATTEND Internal Medicine Pulmonary Disease
DX: Z01.812 Encounter for preprocedural laboratory examination (principal); Z20.822 Contact with and (suspected) exposure to COVID-19
CPT/HCPCS: U0003; U0005; 87635

== ENCOUNTER 2021-03-23 07:12 | Day surgery (SDC) | payer MEDICARE, MEDICAID ==
[2021-03-22 14:49] VITALS: BMI 18.3
[2021-03-23 09:03] LABS: RBC Count-Automated (BF) 808 /cu.mm; WBC/Nucleated-Auto (BF) 311 uL
[2021-03-23 09:07] LABS: BF Color Yellow; Body Fluid Source Pleural Fluid; Clarity Hazy (Clear); Tube # EDTA
[2021-03-23 09:15] LABS: Fluid, Triglycerides 18 mg/dL (Not Available); Pleural Fluid, Amylase Less than 30 U/L (Not Available); Pleural Fluid, Glucose 101 mg/dL; Pleural Fluid, LDH 93 U/L (Not Available); Pleural Fluid, Protein 2.2 g/dL
[2021-03-23 09:39] LABS: BF Segmented Neutrophils 47 %; Cell Count Non Hematic 29 %; Lymphocytes 24 %
== END 2021-03-23 09:00 | disposition home or self-care (01) ==
LOC: SDC 07:12
PROVIDERS: ATTEND Internal Medicine Pulmonary Disease
PROC: 0W9B3ZZ Drainage of Left Pleural Cavity, Percutaneous Approach (ICD-10-PCS; principal; 2021-03-23)
DX: J90 Pleural effusion, not elsewhere classified (principal); C16.9 Malignant neoplasm of stomach, unspecified; C78.7 Secondary malignant neoplasm of liver and intrahepatic bile duct; I70.0 Atherosclerosis of aorta
CPT/HCPCS: 32554; 71045; 82150; 82945; 83615; 83986; 84157; 84478; 85060; 87070; 87116; 87205; 87206; 88112; 88305; 88341; 88342; 89051; J1642

== ENCOUNTER 2021-04-24 21:25 | Inpatient (IN) | payer MEDICARE, MEDICAID ==
[2021-04-24 22:27] LABS: ALT (SGPT) 24 U/L (8-55); AST (SGOT) 33 U/L (5-34); Albumin 1.2 g/dL (3.4-4.8); Alkaline Phosphatase 588 U/L (40-110); Anion Gap 11 mmol/L (10-20); BUN (Urea Nitrogen) 35 mg/dL (9.8-20.1); Bilirubin, Total 0.4 mg/dL (0.2-1.2); Calc. Creatinine Clearance 0 mL/min (70-130); Calcium 6.8 mg/dL (7.8-10.44); Carbon Dioxide 25 mmol/L (23-31); Chloride 101 mmol/L (98-107); Globulin 4.6 g/dL (2.4-3.5); Glucose 113 mg/dL (80-115); Protein, Total 5.8 g/dL (5.8-8.1); Sodium 133 mmol/L (136-145)
[2021-04-24 22:44] LABS: Troponin I Less than 0.010 ng/mL (< 0.028)
[2021-04-24 22:53] LABS: Band 16 % (5-11); Hemoglobin 10.4 g/dL (12.0-16.0); Lymphocytes 9 % (21-51); MDiff Complete? YES; Mean Corpuscular HGB CONC 31.8 g/dL (32.0-36.0); Mean Corpuscular Hemoglobin 31.8 pg (27.0-31.0); Mean Platelet Volume 7.3 fL (7.4-10.4); Monocytes 2 % (0-10); Neutrophil 73 % (42-75); Platelet Count 426 thou/uL (130-400); RBC Distribution Width 15.7 % (11.5-14.5); Red Blood Cell (RBC) Count 3.26 mill/uL (4.20-5.40); White Blood Cell (WBC) Count 33.1 thou/uL (4.8-10.8)
[2021-04-25 02:05] VITALS: BMI 19.2
[2021-04-25] MEDS ORDERED: Acetaminophen 325 MG TAB PO PRN (03:16)
[2021-04-25] MEDS ORDERED: Ondansetron ODT 4 MG TAB PO PRN (03:16)
[2021-04-25] MEDS ORDERED: Ondansetron PF 4 MG/2 ML Vial IVP PRN (03:16)
[2021-04-25] MEDS ORDERED: HYDROcodone/Acetaminophen 5/325 mg Tablet PO PRN (03:34)
[2021-04-25 04:27] LABS: SARS-CoV-2 NAA Rapid Test Not Detected (NotDetected)
[2021-04-25] MEDS ORDERED: Furosemide 20 MG/2 ML VIAL SLOW IVP SCH (07:45)
[2021-04-25] MEDS: Enoxaparin Sodium 40 MG/0.4 ML SYRINGE SC SCH (08:21)
[2021-04-25 08:24] LABS: ALT (SGPT) 20 U/L (8-55); AST (SGOT) 26 U/L (5-34); Alkaline Phosphatase 477 U/L (40-110); Anion Gap 10 mmol/L (10-20); BUN (Urea Nitrogen) 34 mg/dL (9.8-20.1); Bilirubin, Total 0.4 mg/dL (0.2-1.2); Calc. Creatinine Clearance 71 mL/min (70-130); Calcium 6.8 mg/dL (7.8-10.44); Carbon Dioxide 21 mmol/L (23-31); Chloride 104 mmol/L (98-107); Glucose 79 mg/dL (80-115); Sodium 131 mmol/L (136-145)
[2021-04-25 08:33] LABS: Band 11 % (5-11); Hemoglobin 10.7 g/dL (12.0-16.0); Lymphocytes 16 % (21-51); MDiff Complete? YES; Macrocytosis SLIGHT = 6-15 cells (100X) (0-5/hpf); Mean Corpuscular HGB CONC 31.8 g/dL (32.0-36.0); Mean Corpuscular Hemoglobin 31.9 pg (27.0-31.0); Mean Platelet Volume 7.3 fL (7.4-10.4); Monocytes 3 % (0-10); Neutrophil 70 % (42-75); Platelet Count 311 thou/uL (130-400); Platelet Morphology Comment Appears Adequate; Polychromasia SLIGHT = 2-3 cells (100X) (0-2/hpf); Red Blood Cell (RBC) Count 3.37 mill/uL (4.20-5.40); White Blood Cell (WBC) Count 26.3 thou/uL (4.8-10.8)
[2021-04-25] MEDS ORDERED: Furosemide 20 MG TAB PO SCH (09:00)
[2021-04-26 05:54] LABS: Thyroid Stimulating Hormone 12.7608 uIU/mL (0.35-4.94)
[2021-04-26] MEDS: Enoxaparin Sodium 40 MG/0.4 ML SYRINGE SC SCH (08:14)
[2021-04-26 10:50] LABS: Anion Gap 11 mmol/L (10-20); BUN (Urea Nitrogen) 35 mg/dL (9.8-20.1); Calc. Creatinine Clearance 66 mL/min (70-130); Calcium 6.8 mg/dL (7.8-10.44); Carbon Dioxide 23 mmol/L (23-31); Chloride 101 mmol/L (98-107); Glucose 96 mg/dL (80-115); Potassium 3.5 mmol/L (3.5-5.1); Sodium 131 mmol/L (136-145)
[2021-04-26 10:54] LABS: Band 5 % (5-11); Hemoglobin 10.9 g/dL (12.0-16.0); Lymphocytes 5 % (21-51); MDiff Complete? YES; Macrocytosis SLIGHT = 6-15 cells (100X) (0-5/hpf); Mean Corpuscular HGB CONC 32.4 g/dL (32.0-36.0); Mean Corpuscular Hemoglobin 32.7 pg (27.0-31.0); Mean Platelet Volume 7.7 fL (7.4-10.4); Neutrophil 90 % (42-75); Platelet Count 320 thou/uL (130-400); Platelet Morphology Comment Appears Adequate; Polychromasia SLIGHT = 2-3 cells (100X) (0-2/hpf); RBC Distribution Width 15.9 % (11.5-14.5); Red Blood Cell (RBC) Count 3.32 mill/uL (4.20-5.40); White Blood Cell (WBC) Count 30.5 thou/uL (4.8-10.8)
[2021-04-26 12:20] LABS: RBC Count-Automated (BF) 1155 /cu.mm; WBC/Nucleated-Auto (BF) 129 uL
[2021-04-26 12:23] LABS: Body Fluid Source Pleural Fluid; Tube # EDTA
[2021-04-26 12:24] LABS: BF Color Colorless; Clarity Cloudy/Turbid (Clear)
[2021-04-26 12:28] LABS: BF Segmented Neutrophils 67 %; Cell Count Non Hematic 21 %; Lymphocytes 12 %
[2021-04-26 12:30] LABS: Fluid, Triglycerides 90 mg/dL (Not Available); Pleural Fluid, Amylase Less than 30 U/L (Not Available); Pleural Fluid, Glucose 103 mg/dL; Pleural Fluid, LDH 47 U/L (Not Available); Pleural Fluid, Protein 1.3 g/dL
[2021-04-26] MEDS ORDERED: Furosemide 20 MG/2 ML VIAL SLOW IVP SCH (18:15)
[2021-04-26] MEDS ORDERED: Aspirin 325 MG TAB PO SCH (19:15)
[2021-04-26 19:52] LABS: Troponin I 0.015 ng/mL (< 0.028)
[2021-04-26] MEDS ORDERED: cefTRIAXone\\ROCEPHIN 1 GM in Sodium Chloride 0.9% 100 ML IVPB SCH (20:00)
[2021-04-26] MEDS ORDERED: Azithromycin 500 MG in Sodium Chloride 0.9% 250 ML 250 ML IVPB SCH (21:00)
[2021-04-27] MEDS ORDERED: Levothyroxine Sodium 100 MCG TAB PO SCH (06:00)
[2021-04-27 06:55] LABS: Anion Gap 11 mmol/L (10-20); BUN (Urea Nitrogen) 37 mg/dL (9.8-20.1); Calc. Creatinine Clearance 68 mL/min (70-130); Calcium 6.5 mg/dL (7.8-10.44); Carbon Dioxide 20 mmol/L (23-31); Chloride 105 mmol/L (98-107); Glucose 76 mg/dL (80-115); Potassium 5.1 mmol/L (3.5-5.1); Sodium 131 mmol/L (136-145)
[2021-04-27] MEDS ORDERED: Apixaban 5 MG TAB PO SCH (09:00)
[2021-04-27] MEDS ORDERED: Amoxicillin/Potassium Clav 250 mg/5 ml Oral Suspension PO SCH (09:00)
[2021-04-27 12:04] LABS: Hemoglobin 10.6 g/dL (12.0-16.0); Mean Corpuscular Hemoglobin 32.1 pg (27.0-31.0); Mean Platelet Volume 8.7 fL (7.4-10.4); Platelet Count 273 thou/uL (130-400); Red Blood Cell (RBC) Count 3.31 mill/uL (4.20-5.40); White Blood Cell (WBC) Count 26.7 thou/uL (4.8-10.8)
[2021-04-27 12:31] LABS: Anisocytosis SLIGHT = 6-15 cells (100X) (0-5/hpf); Band 10 % (5-11); Lymphocytes 2 % (21-51); MDiff Complete? YES; Macrocytosis SLIGHT = 6-15 cells (100X) (0-5/hpf); Metamyelocyte 2 % (0-0); Monocytes 3 % (0-10); Neutrophil 83 % (42-75); Platelet Morphology Comment Appears Adequate; Polychromasia SLIGHT = 2-3 cells (100X) (0-2/hpf); Target Cells SLIGHT = 2-5 cells (100X) (0-1/hpf)
[2021-04-27 12:42] LABS: Free T4 (Free Thyroxine) 0.9 ng/dL (0.70-1.48); Thyroid Stimulating Hormone 12.5019 uIU/mL (0.35-4.94)
[2021-04-27 15:18] VITALS: BP 111/73; TEMP 97.8
[2021-04-28] MEDS ORDERED: Levothyroxine Sodium 50 MCG TAB PO SCH (06:00)
== END 2021-04-27 17:40 | disposition hospice, home (50) | DRG 186 ==
LOC: ERS 21:25 → SURG A 04-25 01:01
PROVIDERS: ADMIT Student in an Organized Health Care Education/Training Program; ATTEND Internal Medicine
PROC: 0W993ZX Drainage of Right Pleural Cavity, Percutaneous Approach, Diagnostic (ICD-10-PCS; principal; 2021-04-27)
DX: J90 Pleural effusion, not elsewhere classified (principal); J96.01 Acute respiratory failure with hypoxia; C16.9 Malignant neoplasm of stomach, unspecified; Z20.822 Contact with and (suspected) exposure to COVID-19; Z51.5 Encounter for palliative care; E87.1 Hypo-osmolality and hyponatremia; R64 Cachexia; Z68.1 Body mass index [BMI] 19.9 or less, adult; I82.533 Chronic embolism and thrombosis of popliteal vein, bilateral; I82.513 Chronic embolism and thrombosis of femoral vein, bilateral; K76.0 Fatty (change of) liver, not elsewhere classified; T80.89XA Other complications following infusion, transfusion and therapeutic injection, initial encounter; Y84.8 Other medical procedures as the cause of abnormal reaction of the patient, or of later complication, without mention of misadventure at the time of the procedure; D64.89 Other specified anemias; D64.9 Anemia, unspecified; D72.829 Elevated white blood cell count, unspecified; D63.8 Anemia in other chronic diseases classified elsewhere; E03.9 Hypothyroidism, unspecified; D50.0 Iron deficiency anemia secondary to blood loss (chronic); Z79.899 Other long term (current) drug therapy
CPT/HCPCS: 36415; 71045; 71275; 80048; 80053; 82150; 82607; 82746; 82945; 83615; 83880; 84157; 84439; 84443; 84478; 84484; 85025; 85060; 85379; 87070; 87116; 87205; 87206; 88112; 89051; 93005; 93010; 93306; 93970; J0456; J0696; J1642; J1650; J1940; J3490; J7050; Q9967; U0002; U0005